=== PATIENT | female | born 1950 | race Hispanic/Latino ===

== ENCOUNTER → 2017-12-17 12:45 | Outpatient (CLI) | payer MEDICARE, OTHER, SELFPAY ==
--- NOTE | 2017-12-21 16:13 | P.PFT.S_ITS ---
Pulmonary Function Test Referral & Results Date Patient Seen: 12/17/17 Requesting provider: Karla Acevedo Results: The spirometry demonstrates an FVC of 1.42 L which is 49% of predicted. The FEV1 was measured at 1.05 L which is 40% of predicted. The FEV1/FVC ratio was 70 for which is 96% of predicted. Following the administration of bronchodilator there was a 12% improvement in FEV1 and a 63% improvement in FEF 25-75%. Lung volumes show an SVC of 1.74 L which is 63% of predicted. T no diffusing capacity was performed The maximum voluntary ventilation was reduced. Interpretation: This study demonstrates moderately severe obstructive lung disease with limited evidence of benefit following bronchodilator administration , particularly small airway flow. There is also mild restrictive lung disease present.
== END ==
PROVIDERS: Family Provider Family Medicine; PCP Family Medicine; Visit Provider Internal Medicine Critical Care Medicine
DX: M35.8 Other specified systemic involvement of connective tissue (principal); J84.89 Other specified interstitial pulmonary diseases
CPT/HCPCS: 94010; 94060; 94726; 94729

== ENCOUNTER → 2018-09-08 14:48 | Outpatient (CLI) | payer MEDICARE, OTHER, SELFPAY ==
--- NOTE | 2018-09-16 15:15 | PM.PFT.1 ---
Pulmonary Function Test Referral & Results Date Patient Seen: 09/08/18 Requesting provider: Heide Victoria Indication: J84.17 Results: The spirometry demonstrates an FVC of 1.35 L which is 47% of predicted. The FEV1 was measured at 1.01 L which is 46% of predicted. The FEV1/FVC ratio was 70 for which is 96% of predicted. Following the administration of bronchodilator there was a 34% improvement in FEF 25-75%. Lung volumes show an SVC of 1.44 L which is 52% of predicted. The diffusing capacity was measured at 8.53 which is 39% of predicted. No hemoglobin value was provided, so no correction for potential anemia could be made, if appropriate. The maximum voluntary ventilation was reduced Interpretation: This study demonstrates moderately severe obstructive lung disease with limited evidence of benefit following bronchodilator administration, particularly small airway flow as noted by the improvement in FEF 25-75% There is also [id number] restrictive lung disease present based on reduction in lung volumes There is more significant reduction in diffusing capacity suggesting significant disease at the capillary alveolar level Compared to PFTs performed in December 2017, current study is essentially unchanged. No diffusing capacity was performed with the previous study
== END ==
PROVIDERS: Family Provider Family Medicine; PCP Family Medicine; Visit Provider Student in an Organized Health Care Education/Training Program
DX: R05 Cough (principal); J84.17 Other interstitial pulmonary diseases with fibrosis in diseases classified elsewhere
CPT/HCPCS: 94060; 94726; 94729

== ENCOUNTER → 2020-09-06 14:21 | Outpatient (CLI) | payer MEDICARE, OTHER, SELFPAY ==
--- NOTE | 2020-09-06 14:41 | DI.CT.S_ITS ---
PROCEDURE: CT CHEST HIGH RESOLUTION INDICATIONS: Interstitial pulmonary disease, unspecified TECHNIQUE: Noncontrast 1.0 and 5.0 mm thick contiguous axial sections from the pulmonary apex to the posterior costophrenic angles, with 7 mm thick coronal and sagittal MIP reformats. 1 mm thick dynamic expiratory images acquired through the upper, mid, and lower lungs. 1.0 mm thick axial sections acquired from the ky to the posterior costophrenic angles in the prone end-inspiration position. For radiation dose reduction, the following was used: automated exposure control, adjustment of mA and/or kV according to patient size. COMPARISON: [facility], CT, CHEST HIGH RESOLUTION, 07/28/2016, 12:44. FINDINGS: Image quality: Excellent. Lungs: Peripheral reticulations and traction cystic changes are again seen in both lungs that are most prominent at the lung bases. No definite honeycombing is seen. Findings have not significantly changed when compared to the prior CT from 09/08/2019 or 07/28/2016. Mild centrilobular and paraseptal emphysema is again seen in the lung apices. No pleural effusion or pneumothorax. Pleura: No pleural effusions or pneumothorax. Mediastinum: Heart size is normal. Small pericardial effusion. The main pulmonary trunk measures 3.8 cm in diameter, which can be seen in the setting of pulmonary hypertension. The thoracic aorta is normal in size. Moderate aortic atherosclerotic calcifications are seen. Esophagus is normal in caliber. Bones and chest wall: No suspicious bony lesions. No vertebral body compression fractures. Abdomen: Hypodensities in the included portions of the liver do not appear significantly changed, and again most likely represent benign cysts. Visualized upper abdominal solid organs and bowel loops otherwise appear normal. IMPRESSION: 1. 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 Differential considerations again include UIP or fibrotic NSIP. 2. Mild centrilobular and paraseptal emphysema. 3. Enlarged main pulmonary artery again may be seen in the setting of pulmonary hypertension. 4. A stable small pericardial effusion. Dictated by: Gerry Bauer M.D. on 09/06/2020 at 16:47 Approved by: Gerry Bauer M.D. on 09/06/2020 at 17:00
== END ==
PROVIDERS: Family Provider Family Medicine; PCP Nurse Practitioner Family; Referring Provider Internal Medicine Rheumatology; Visit Provider Internal Medicine Rheumatology
DX: J84.9 Interstitial pulmonary disease, unspecified (principal); R94.2 Abnormal results of pulmonary function studies; M33.20 Polymyositis, organ involvement unspecified; J43.2 Centrilobular emphysema; I31.3 Pericardial effusion (noninflammatory)
CPT/HCPCS: 71250

== ENCOUNTER → 2024-09-04 13:39 | Outpatient (CLI) | payer MEDICARE, OTHER, SELFPAY ==
--- NOTE | 2024-09-04 13:41 | DI.CT.S_ITS ---
PROCEDURE: CT CHEST HIGH RESOLUTION INDICATIONS: ILD TECHNIQUE: Noncontrast 1.0 and 5.0 mm thick contiguous axial sections from the pulmonary apex to the posterior costophrenic angles, with 7 mm thick coronal and sagittal MIP reformats. 1 mm thick dynamic expiratory images acquired through the upper, mid, and lower lungs. 1.0 mm thick axial sections acquired from the ky to the posterior costophrenic angles in the prone end-inspiration position. For radiation dose reduction, the following was used: automated exposure control, adjustment of mA and/or kV according to patient size. COMPARISON: [facility], CT, CT HIGH RESOLUTION CHEST, 12/30/2022, 16:00. [facility], CT, CT CHEST HIGH RESOLUTION, 09/06/2020, 14:35. FINDINGS: Image quality: Diagnostic. Lower Neck: No enlarged lymph nodes. Thyroid: No thyroid nodules which require sonographic follow up, per consensus guidelines. Axillae: No enlarged lymph nodes. Chest Wall: Unremarkable. Bones: Unremarkable. Lungs and Pleura: No pneumothorax or pleural effusions. Calcified granuloma. Basilar predominant peripheral reticulation with bronchiectasis and bronchiolectasis. No subpleural sparing. No honeycombing. No ground-glass . No significant air trapping. This has not significantly progressed from prior. Heart: Heart size is enlarged. Small pericardial effusion. Three-vessel coronary calcifications. Thoracic Vessels: Dilated pulmonary artery at 4 centimeter, unchanged Mediastinum and Rebecca: No enlarged lymph nodes. Esophagus: No wall thickening. No hiatal hernia. 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 Pulmonary hypertension. No suspicious pulmonary nodules. Dictated by: Cornell Zazueta M.D. on 09/04/2024 at 14:56 Approved by: Cornell Zazueta M.D. on 09/04/2024 at 15:01
== END ==
PROVIDERS: Family Provider Family Medicine; PCP Nurse Practitioner Family; Referring Provider Internal Medicine Critical Care Medicine; Visit Provider Internal Medicine Critical Care Medicine
DX: J84.9 Interstitial pulmonary disease, unspecified (principal); I31.39 Other pericardial effusion (noninflammatory); I25.10 Atherosclerotic heart disease of native coronary artery without angina pectoris; K76.9 Liver disease, unspecified; I27.20 Pulmonary hypertension, unspecified
CPT/HCPCS: 71250

== ENCOUNTER → 2024-09-11 14:07 | Outpatient (CLI) | payer MEDICARE, OTHER, SELFPAY | PROVIDERS: Family Provider Family Medicine; PCP Nurse Practitioner Family; Referring Provider Internal Medicine Critical Care Medicine; Visit Provider Internal Medicine Critical Care Medicine | DX: J84.89 Other specified interstitial pulmonary diseases (principal); Z87.891 Personal history of nicotine dependence; R94.2 Abnormal results of pulmonary function studies; M60.9 Myositis, unspecified | CPT/HCPCS: 94060; 94726; 94729 ==

== ENCOUNTER 2025-03-30 12:21 | Emergency (ER) | payer MEDICARE, OTHER, SELFPAY ==
[2025-03-30] VITALS (33 sets, daily range): BP systolic 148–220; BP diastolic 72–121; PULSE 76–104; RESP 15–24; TEMP 36.5–36.8; O2SAT 91–100; BMI 25.4
--- NOTE | 2025-03-30 14:22 | ED.SOB ---
HPI - SOB/Dyspnea General Chief Complaint: Shortness of Breath/Dyspnea Stated Complaint: anemia sent by dr Kaur Seen by Provider: 03/30/25 13:25 Source: patient Mode of arrival: Wheelchair Limitations: no limitations History of Present Illness HPI Narrative: Patient here with . Sent here by her .net developer, dr wagner, for anemia. Patient states her anemia is likely due to your kidney function/failure. She had blood transfusion 3 years ago but none since then. Recently she has felt tired fatigued short of breath. No chest pain. No black or bloody stools. Patient is not on any blood thinners. Related Data Home Medications ?Medication ?Instructions ?Recorded ?Confirmed tramadol 50 mg tablet 50 mg PO Q4HP ##0 02/29/12 05/09/24 cyclobenzaprine 10 mg tablet 10 mg PO BEDTIME 05/09/24 05/09/24 leflunomide 20 mg tablet 20 mg PO DAILY 05/09/24 05/09/24 levothyroxine 75 mcg capsule 75 mcg PO DAILY 05/09/24 05/09/24 lisinopril 20 mg tablet 20 mg PO DAILY 05/09/24 05/09/24 nifedipine 90 mg tablet,extended 90 mg PO DAILY 05/09/24 05/09/24 release omeprazole 20 mg capsule,delayed 20 mg PO DAILY 05/09/24 05/09/24 release oxybutynin chloride 5 mg tablet 5 mg PO DAILY 05/09/24 05/09/24 rosuvastatin 5 mg tablet 5 mg PO DAILY 05/09/24 05/09/24 sildenafil (pulm.hypertension) 20 20 mg PO DAILY 05/09/24 05/09/24 mg tablet sulfamethoxazole 800 1 tab PO 3XW 05/09/24 05/09/24 mg-trimethoprim 160 mg tablet (Bactrim DS) Allergies Allergy/AdvReac Type Severity Reaction Status Date / Time No Known Drug Allergies Allergy Unverified 03/30/25 12:51 Review of Systems Review of Systems Narrative: GENERAL: Negative chills, positive fatigue, malaise, negative fever, sweats. HEENT: Negative sinus pain, ear pain, sore throat RESPIRATORY: Positive dyspnea, negative cough CARDIOVASCULAR: Negative chest pain, palpitations GASTROINTESTINAL: Negative vomiting, nausea, abdominal pain : Negative dysuria, frequency, hematuria MUSCULOSKELETAL: Negative muscle or bony pain SKIN: Negative rash, skin lesions NEUROLOGIC: Negative weakness, numbness ROS Unobtainable: All systems reviewed & are unremarkable except as noted in HPI and below Patient History Smoking Status: Never smoker Exam Narrative Exam Narrative: GENERAL: in no distress, not toxic not dyspneic HEAD: Normocephalic. EYES: Pupils equal round, pale conjunctiva ENT: Mucous membranes moist. NECK: Trachea midline. CARDIOVASCULAR: Regular rate and rhythm RESPIRATORY: Clear to auscultation. Breath sounds equal bilaterally. No wheezes, rales, or rhonchi. GASTROINTESTINAL: Abdomen soft, non-tender EXTREMITIES: No gross deformities. BACK: No flank tenderness. NEURO: AOx4. Clear speech SKIN: Warm and dry PSYCH: Not anxious, is cooperative Initial Vital Signs Initial Vital Signs: Vital Signs Temperature 97.7 F 03/30/25 12:51 Pulse Rate 90 03/30/25 12:51 Respiratory Rate 18 03/30/25 12:51 Blood Pressure 206/82 H 03/30/25 12:51 Course Orders Ordered: Discontinued Medications Lisinopril (Lisinopril 20 Mg Tablet) 20 mg PO NOW ONE Stop: 03/30/25 18:42 Last Admin: 03/30/25 18:54 Dose: 20 mg Documented By: DULCE Metoprolol Succinate (Metoprolol Er 50 Mg Tablet) 50 mg PO NOW ONE Stop: 03/30/25 18:42 Last Admin: 03/30/25 18:54 Dose: 50 mg Documented By: DULCE Vital Signs Vital signs: Vital Signs - 8 hr 03/30/25 12:51 03/30/25 13:05 03/30/25 13:08 Temperature 97.7 F Pulse Rate 90 84 Respiratory Rate 18 24 Blood Pressure 206/82 H 210/94 H Pulse Oximetry 03/30/25 13:08 03/30/25 13:22 03/30/25 13:22 Temperature Pulse Rate 87 84 Respiratory Rate 20 Blood Pressure 200/84 H Pulse Oximetry 03/30/25 13:30 03/30/25 14:00 03/30/25 14:30 Temperature Pulse Rate 84 81 85 Respiratory Rate 20 15 24 Blood Pressure Pulse Oximetry 100 98 91 03/30/25 14:40 03/30/25 14:41 03/30/25 14:41 Temperature Pulse Rate 83 84 Respiratory Rate 24 Blood Pressure 206/90 H Pulse Oximetry 93 03/30/25 15:00 03/30/25 15:01 03/30/25 15:01 Temperature Pulse Rate 88 89 Respiratory Rate Blood Pressure 220/91 H Pulse Oximetry 97 98 03/30/25 15:09 03/30/25 15:09 03/30/25 15:30 Temperature Pulse Rate 91 H 82 Respiratory Rate 20 20 Blood Pressure 199/85 H Pulse Oximetry 93 97 03/30/25 15:30 03/30/25 15:43 03/30/25 16:00 Temperature 98.2 F 98.1 F Pulse Rate 88 92 H Respiratory Rate 19 16 Blood Pressure 196/121 H 196/121 H 196/121 H Pulse Oximetry 03/30/25 16:00 03/30/25 16:00 03/30/25 16:30 Temperature Pulse Rate 92 H 104 H Respiratory Rate 20 24 Blood Pressure 218/95 H Pulse Oximetry 96 03/30/25 16:40 03/30/25 16:40 03/30/25 17:00 Temperature Pulse Rate 96 H Respiratory Rate 24 Blood Pressure 148/95 H 163/72 H Pulse Oximetry 98 03/30/25 17:00 03/30/25 17:30 03/30/25 17:30 Temperature Pulse Rate 90 86 Respiratory Rate 16 21 Blood Pressure 192/82 H Pulse Oximetry 98 92 03/30/25 18:00 03/30/25 18:00 03/30/25 18:25 Temperature Pulse Rate 92 H 87 Respiratory Rate Blood Pressure 189/84 H Pulse Oximetry 03/30/25 18:25 03/30/25 18:26 03/30/25 18:30 Temperature 98.3 F Pulse Rate 87 Respiratory Rate 16 Blood Pressure 206/86 H 206/86 H 192/80 H Pulse Oximetry 03/30/25 18:30 03/30/25 18:42 03/30/25 18:54 Temperature 98.3 F Pulse Rate 85 86 91 H Respiratory Rate 16 16 Blood Pressure 178/78 H 178/78 H Pulse Oximetry 97 03/30/25 18:54 Temperature Pulse Rate 91 H Respiratory Rate Blood Pressure 178/78 H Pulse Oximetry MDM - SOB/Dyspnea Lab Data 03/30/25 11:32 03/30/25 11:32 Labs: Lab Results 03/30/25 Range/Units 11:32 WBC 5.1 (4.5-11.0) X10^3/uL RBC 1.86 L (4.0-5.2) X10^6/uL Hgb 5.3 L* (12.0-16.0) g/dL Hct 16.6 L* (36-46) % MCV 89.4 (80-100) fL MCH 28.6 (26-34) PG MCHC 31.9 (30-36) % RDW 19.2 H (11.6-14.8) % Plt Count 248 (150-400) X10^3/uL Neut % (Auto) 69.3 (50-75) % Lymph % (Auto) 16.2 L (25-40) % Mcintosh % (Auto) 9.1 (3-14) % Eos % (Auto) 3.3 (2-4) % Baso % (Auto) 2.1 H (0-2) % Neut # (Auto) 3500 (2654-4103) /uL Lymph # (Auto) 800 L (2372-2192) /uL Mcintosh # (Auto) 500 (0-900) /uL Eos # (Auto) 200 (0-450) /uL Baso # (Auto) 100 (0-100) /uL PT 10.7 (9.4-12.5) SECONDS INR 0.9 (0.9-1.3) APTT 29 (25.1-36.5) SECONDS Sodium 136 L (137-145) mmol/L Potassium 3.2 L (3.4-5.1) mmol/L Chloride 103 (98-107) mmol/L Carbon Dioxide 20 L (22-32) mmol/L BUN 18 H (7-17) mg/dL Creatinine 1.66 H (0.52-1.04) mg/dL Estimated GFR 32 L (>60) mL/min BUN/Creatinine Ratio 10.8 (6-22) Glucose 150 H (70-99) mg/dL Calcium 8.7 (8.4-10.2) mg/dL Total Bilirubin 0.5 (0.2-1.3) mg/dL AST 26 (14-36) IU/L ALT 16 (<35) IU/L Alkaline Phosphatase 102 (38-126) U/L Total Protein 6.6 (6.3-8.2) g/dL Albumin 4.0 (3.5-5.0) g/dL Globulin 2.6 (1.7-4.1) g/dL Albumin/Globulin Ratio 1.5 (1.0-2.8) Blood Type O Positive Antibody Screen Negative Crossmatch See Detail MDM Narrative Medical decision making narrative: Patient here with . Sent here by her .net developer, dr wagner, for anemia. Patient states her anemia is likely due to your kidney function/failure. She had blood transfusion 3 years ago but none since then. Recently she has felt tired fatigued short of breath. No chest pain. No black or bloody stools. Patient is not on any blood thinners. MDM After history and exam, CBC CMP type and screen transfuse Differential considered: Includes but not limited to acute on chronic anemia, chronic kidney disease Medical records reviewed: No recent visit for this complaint Lab Test results independently reviewed as above. Pertinent findings: WBC 5.1 hemoglobin 5.3 hematocrit 16.6 platelets 248 sodium 136 potassium 3.2 BUN 18 creatinine 1.66 GFR 32 Consultations: None indicated at this time Re-evaluations: 2:46 p.m.. Reviewed results with patient and laboratory results, they do agree for blood transfusion. 6:45 p.m.. Patient feeling much better with 1st unit of blood. Second unit is starting now. Blood pressure noted she has not taken her blood pressure medications today. I will provide them. They do desire discharge home after 2nd unit of blood transfusion. Discussion: Appropriate for transfusion of blood for symptomatic anemia, appropriate for discharge home. Patient feeling much better with blood transfusion. Blood pressure medication has been provided. Return precautions reviewed with them. Diagnosis: Anemia Critical Care Time Critical Care Time Attestation: Critical Care Time 35 minutes: Critical care time is separate from other billable procedures. This critical care time includes consultation with family , review of records, and interpretation of data from labs,, patient requiring blood transfusion Discharge Plan Departure Patient Disposition: Home Clinical Impression: Anemia Qualifiers: Anemia type: unspecified type Qualified Code(s): D64.9 - Anemia, unspecified Instructions: Anemia Activity Restrictions/Additional Instructions: Please see family doctor next week for re-evaluation. You were transfused 2 units of blood today, your blood count was low. Please see your .net developer next week for re-evaluation. Return if worse if any questions or concerns. Please continue your iron supplement pills. Prescriptions: No Action tramadol 50 MG tablet 50 mg PO Q4HP Qty: 0 cyclobenzaprine 10 mg tablet 10 mg PO BEDTIME leflunomide 20 mg tablet 20 mg PO DAILY levothyroxine 75 mcg capsule 75 mcg PO DAILY lisinopril 20 mg tablet 20 mg PO DAILY nifedipine 90 mg tablet extended release 90 mg PO DAILY omeprazole 20 mg capsule,delayed release(DR/EC) 20 mg PO DAILY rosuvastatin 5 mg tablet 5 mg PO DAILY sildenafil (pulm.hypertension) 20 mg tablet 20 mg PO DAILY oxybutynin chloride 5 mg tablet 5 mg PO DAILY sulfamethoxazole-trimethoprim [Bactrim DS] 800-160 mg tablet 1 tab PO 3XW Rx Instructions: 1 tab a day, 3 times weekly. Referrals: Katy Boateng ARNP [Primary Care Provider, Medical] Stand Alone Forms: Patient Portal/API
[2025-03-30 14:34] LABS: Alanine Aminotransferase 16 IU/L (<35); Albumin 4.0 g/dL (3.5-5.0); Albumin Globulin Ratio 1.5 (1.0-2.8); Alkaline Phosphatase 102 U/L (38-126); Blood Urea Nitrogen 18 mg/dL (7-17); Calcium 8.7 mg/dL (8.4-10.2); Carbon Dioxide 20 mmol/L (22-32); Chloride 103 mmol/L (98-107); Estimated Glomerular Filt Rate 32 mL/min (>60); Globulin 2.6 g/dL (1.7-4.1); Glucose 150 mg/dL (70-99); HEMOLYSIS < 15 (0-50); Potassium 3.2 mmol/L (3.4-5.1); Sodium 136 mmol/L (137-145); Total Protein 6.6 g/dL (6.3-8.2)
[2025-03-30 14:41] LABS: Add Manual Diff / Slide Review NO; INR 0.9 (0.9-1.3); Lymphocytes Absolute Auto 800 /uL (1100-4500); Mean Corpuscular HGB Conc 31.9 % (30-36); Mean Corpuscular Hemoglobin 28.6 PG (26-34); Mean Corpuscular Volume 89.4 fL (80-100); Platelet Count 248 X10^3/uL (150-400); Prothrombin Time 10.7 SECONDS (9.4-12.5)
[2025-03-30 14:44] LABS: Hematocrit 16.6 % (36-46); Hemoglobin 5.3 g/dL (12.0-16.0); PTT Partial Thromboplastin Tim 29 SECONDS (25.1-36.5)
[2025-03-30] MEDS: METOPROLOL ER 50 MG TABLET PO (18:54)
== END 2025-03-30 20:35 | disposition home or self-care (01) ==
PROVIDERS: Emergency Provider Emergency Medicine; Family Provider Family Medicine; PCP Nurse Practitioner Family
DX: D64.9 Anemia, unspecified (principal); R06.02 Shortness of breath; R53.83 Other fatigue
CPT/HCPCS: 36430; 80053; 85025; 85610; 85730; 86850; 86900; 86901; 99284; 99291; P9016